=== PATIENT | female | born 1990 | race Caucasian/White ===

== ENCOUNTER 2018-04-11 01:21 | Emergency (ER) | payer OTHER ==
[~2018-04-11] VITALS: Ht 172.7 cm; Wt 65.8 kg
[2018-04-11 01:23] VITALS: BP 114/82
[2018-04-11] MEDS: ONDANSETRON 4 MG/2 ML VIAL IVP ONE ×2 (01:50→02:53)
[2018-04-11] MEDS: NACL 0.9% 1,000 ML IV SCH (01:51)
[2018-04-11 02:22] LABS: CARBON DIOXIDE 27.8 mmol/L (21-32); CREATININE 0.9 mg/dL (0.6-1.3); POTASSIUM 3.8 mmol/L (3.5-5.1)
[2018-04-11 02:29] LABS: TOTAL BILIRUBIN 0.3 mg/dL (0.0-1.0)
[2018-04-11] MEDS: NACL 0.9% 1,000 ML IV ONE (02:56)
[2018-04-11 03:28] LABS: HEMATOCRIT 38.5 % (36-48); HEMOGLOBIN 11.9 g/dL (12.0-16.0); MEAN CORPUSCULAR HEMOGLOBIN 24 pg (27-31); MEAN CORPUSCULAR HGB CONC 31 g/dL (33-37); MEAN CORPUSCULAR VOLUME 78.7 fL (80-94); PLATELET COUNT (AUTO) 333 K/uL (140-450); RED BLOOD CELL COUNT(AUTO) 4.89 MIL/uL (4.20-5.40); RED CELL DISTRIBUTION WIDTH 16.6 % (11.6-13.7)
[2018-04-11 03:41] LABS: EOSINOPHILS % (MANUAL) 2 % (0-4); LYMPHOCYTES % (MANUAL) 3 % (20-46); MONOCYTES % (MANUAL) 1 % (5-12)
[2018-04-11 03:52] LABS: APPEARANCE,URINE SLIGHTLY CLOUDY (CLEAR); COLOR,URINE YELLOW (YELLOW); PH,URINE 6.5 (5.0-9.0)
[2018-04-11 03:53] LABS: BILIRUBIN,URINE NEGATIVE (NEGATIVE); BLOOD, URINE 2+ (NEGATIVE); LEUKOCYTE ESTERASE ,URINE 1+ (NEGATIVE); NITRITE, URINE NEGATIVE (NEGATIVE); UGLUCOSE NEGATIVE (NEGATIVE)
[2018-04-11 03:57] LABS: RBC,URINE 11-20 (MOD) /HPF (0-5); WBC,URINE 16-25 (MOD) /HPF (0-5)
[2018-04-11] MEDS: diphenhydrAMINE 50 MG/ML VIAL IVP ONE (04:44)
[2018-04-11] MEDS: METOCLOPRAMIDE 10 MG/2 ML INJ VIAL IVP ONE (04:48)
[2018-04-11 05:11] VITALS: BP 130/77
== END 2018-04-11 05:11 | disposition home or self-care (01) ==
LOC: MED 01:21
DX: R10.9 Unspecified abdominal pain (principal); R11.2 Nausea with vomiting, unspecified; J45.909 Unspecified asthma, uncomplicated; G43.909 Migraine, unspecified, not intractable, without status migrainosus
CPT/HCPCS: 36415; 80053; 81001; 81025; 83690; 84702; 85025; 87086; 96361; 96374; 96375; 96376; 99284; J1200; J2405; J2765; J7030

== ENCOUNTER 2019-07-05 10:14 | Emergency (ER) | payer MEDICAID, OTHER ==
[~2019-07-05] VITALS: Ht 157.5 cm; Wt 56.7 kg
--- NOTE | 2019-07-05 10:19 | NUR ---
PT AMBULATED TO ER BED 04
[2019-07-05 10:25] VITALS: BP 108/69
--- NOTE | 2019-07-05 10:30 | NUR ---
PT C/O RLQ PAIN 8/10 X 1 DAY DENIES N/V , PT AWAKE , ALERT, AFEBRILE NOT IN DISTRESS. 17 WEEKS , DENIES BLOODY VAGINAL DISCHARGE. NO MEDS TAKEN. DENIES PREVIOUS MEDICAL HX.
--- NOTE | 2019-07-05 11:15 | NUR ---
JAREN AT BEDSIDE.
--- NOTE | 2019-07-05 12:14 | NUR ---
DR MORAN AT BED SIDE.
[2019-07-05 12:39] VITALS: BP 108/69
--- NOTE | 2019-07-05 12:40 | NUR ---
Patient discharged with v/s stable. Written and verbal after care instructions given and explained abdominal pain. Patient alert, oriented and verbalized understanding of instructions. Ambulatory with steady gait. All questions addressed prior to discharge. ID band removed. Patient advised to follow up with PMD. Rx of motrin given. Patient educated on indication of medication including possible reaction and side effects. Opportunity to ask questions provided and answered.
== END 2019-07-05 12:40 | disposition home or self-care (01) ==
LOC: MED 10:14
DX: O26.892 Other specified pregnancy related conditions, second trimester (principal); R10.31 Right lower quadrant pain; J45.909 Unspecified asthma, uncomplicated; Z3A.17 17 weeks gestation of pregnancy
CPT/HCPCS: 76805; 81002; 81025; 99284; Q0092

== ENCOUNTER 2019-07-15 10:38 | Inpatient (IN) | payer MEDICAID ==
[~2019-07-15] VITALS: Ht 157.5 cm; Wt 56.7 kg
[2019-07-15 10:49] VITALS: BP 103/53
--- NOTE | 2019-07-15 10:51 | NUR ---
TRIAGE COMPLETE. VSS. RETURNED TO LOBBY TO WAIT FOR BED IN ED.
--- NOTE | 2019-07-15 12:49 | NUR ---
PT AMBULATED TO BED 07
[2019-07-15] MEDS ORDERED: ACETAMINOPHEN 325 MG TAB PO ONE (13:25)
[2019-07-15] MEDS ORDERED: NACL 0.9% 1,000 ML IV ONE ×2 (13:25→15:00)
[2019-07-15] MEDS ORDERED: ONDANSETRON 4 MG/2 ML VIAL IVP ONE (13:25)
[2019-07-15] MEDS ORDERED: cefTRIAXone 500 MG VIAL ONE ×2 (15:14→15:15)
[2019-07-15 15:18] LABS: APPEARANCE,URINE HAZY (CLEAR); BILIRUBIN,URINE NEGATIVE (NEGATIVE); BLOOD, URINE NEGATIVE (NEGATIVE); COLOR,URINE YELLOW (YELLOW); LEUKOCYTE ESTERASE ,URINE 2+ (NEGATIVE); NITRITE, URINE NEGATIVE (NEGATIVE); PH,URINE 5.5 (5.0-9.0); UGLUCOSE NEGATIVE (NEGATIVE)
[2019-07-15 15:21] LABS: HEMATOCRIT 36.8 % (36-48); HEMOGLOBIN 11.8 g/dL (12.0-16.0); MEAN CORPUSCULAR HEMOGLOBIN 26 pg (27-31); MEAN CORPUSCULAR HGB CONC 32 g/dL (33-37); MEAN CORPUSCULAR VOLUME 81.9 fL (80-94); PLATELET COUNT (AUTO) 171 K/uL (140-450); RED BLOOD CELL COUNT(AUTO) 4.49 MIL/uL (4.20-5.40); RED CELL DISTRIBUTION WIDTH 15.6 % (11.6-13.7); WHITE BLOOD COUNT (AUTO) 6.4 K/uL (4.8-10.8)
[2019-07-15 15:22] LABS: BASOPHILS % (AUTO) 0.2 % (0.0-2.0); EOSINOPHILS % (AUTO) 0.1 % (0.0-4.0); LYMPHOCYTES # (AUTO) 0.1 K/uL (2.5-16.5); LYMPHOCYTES % (AUTO) 1.3 % (20.5-51.1); MONOCYTES # (AUTO) 0.3 K/uL (0.8-1.0); MONOCYTES % (AUTO) 4.3 % (1.7-9.3); NEUTROPHILS # (AUTO) 6.1 K/uL (1.8-7.7); NEUTROPHILS % (AUTO) 94.1 % (42.2-75.2)
[2019-07-15 15:32] LABS: ALBUMIN 3.3 g/dL (3.4-5.0); ANION GAP 14.7 (8-16); CREATININE 0.6 mg/dL (0.6-1.3); POTASSIUM 3.7 mmol/L (3.5-5.1); TOTAL BILIRUBIN 0.5 mg/dL (0.0-1.0)
[2019-07-15 15:34] LABS: RBC,URINE NONE SEEN /HPF (0-5)
[2019-07-15 15:35] LABS: BARBITURATE, URINE NEG. ng/ml (NEG <=200); BENZODIAZEPINE, URINE NEG. ng/mL (NEG <=200); CANNABINOID, URINE NEG. ng/mL (NEG <=50); COCAINE, URINE NEG. ng/mL (NEG <=300); OPIATE, URINE NEG. ng/mL (NEG <=2000); PHENCYCLIDINE SCREEN,URINE NEG. ng/mL (NEG <=25); WBC,URINE 16-25 (MOD) /HPF (0-5)
[2019-07-15] MEDS ORDERED: CHOL1CTB1 PO (15:35)
[2019-07-15] MEDS: NACL 0.9% 1,000 ML IV SCH (15:37)
[2019-07-15] MEDS ORDERED: ONDANSETRON 4 MG/2 ML VIAL IVP PRN (15:40)
[2019-07-15] MEDS ORDERED: DEXTROSE 5% 50 ML IV ONE (16:00)
[2019-07-15] MEDS ORDERED: cefTRIAXone 1,000 MG VIAL ONE (16:00)
[2019-07-15 16:32] LABS: MAGNESIUM 1.6 mg/dL (1.8-2.4); PHOSPHORUS 2.3 mg/dL (2.5-4.9); THYROID STIMULATING HORMONE 0.4 uIU/mL (0.34-3.74)
[2019-07-15 16:41] LABS: PROTHROMBIN TIME 10.2 secs (10.8-13.4)
--- NOTE | 2019-07-15 16:53 | NUR ---
Stable. VSS. Low grade temp. States that she feels better. To be admitted. Awaiting bed on floor.
--- NOTE | 2019-07-15 18:00 | NUR ---
RECEIVED PATIENT FROM ED NURSE VIA KRYS. PATIENT IS AAOX4. RESPIRATIONS EVEN AND UNLABORED, ROOM AIR. VISIBLE CHEST RISE NOTED. SKIN WARM AND INTACT. IV IN THE LEFT AC G22 RUNNING NS BOLUS. PATIENT IS AMBULATORY. BED IN LOW POSITION. CALL LIGHT IS WITHIN REACH. WILL CONTINUE TO MONITOR
--- NOTE | 2019-07-15 18:05 | NUR ---
VITAL SIGNS TAKEN. MRSA OF NARES COLLECTED
--- NOTE | 2019-07-15 18:14 | NUR ---
Stable. VSS. Low grade temp. C/O pain. . Has had Tylenol. Admitted . Report to Med/Surg Nurse. Placed in Bed 112B.
[2019-07-15] MEDS ORDERED: SODIUM PHOS / POTASSIUM PHOS 1 PKT PDR PO SCH (18:30)
--- NOTE | 2019-07-15 18:35 | NUR ---
HANG NS AT 50 ML/HR.
--- NOTE | 2019-07-15 19:19 | NUR ---
ENDORSED PATIENT TO ABRADING MACHINE TENDER NURSE FOR CONTINUITY OF CARE. PATIENT IS IN STABLE CONDITION
--- NOTE | 2019-07-15 19:20 | NUR ---
REPORT RECEIVED FROM AM NURSE AT BEDSIDE. PT IN STABLE CONDITION. AAOX4. INTRODUCED SELF TO PT. BOARD UPDATED. NO COMPLAINTS OF PAIN. NO SOB. AFEBRILE. PT IS AMBULATORY. IV SITE L AC 22G RUNNING NS@50ML/HR PATENT AND INTACT. SKIN WARM, DRY, AND INTACT WITH NO OPEN WOUNDS. BED LOCKED IN LOW POSITION. CALL GROVES WITHIN REACH. SAFETY PRECAUTION IN PLACE. ALL NEEDS MET AT THIS TIME.
[2019-07-15 20:00] VITALS: BP 104/53
[2019-07-15] MEDS: ALBUTEROL 0.083% 2.5 MG/3 ML NEBU INH PRN (20:15)
[2019-07-15] MEDS: HYDROmorphone 1 MG/ML AMP IVP PRN (20:45)
[2019-07-15] MEDS: DOCUSATE SODIUM 100 MG GELCAP PO SCH (20:45)
--- NOTE | 2019-07-15 20:45 | NUR ---
COLACE GIVEN PO. DILAUDID GIVEN FOR 01/31 BACK PAIN. PT TOLERATED WELL. Addendum: 07/16/19 at 0112 by Tiburcio Chance RN TYL GIVEN FOR FEVER OF 101.3. PT TOLERATED WELL.
[2019-07-15] MEDS: ACETAMINOPHEN 325 MG TAB PO PRN (20:50)
--- NOTE | 2019-07-15 21:55 | NUR ---
PT LAYING IN BED WATCHING TV. NO S/S OF DISTRESS NOTED. WILL CONTINUE TO MONITOR.
[2019-07-16] VITALS: BP 101/42
--- NOTE | 2019-07-16 00:20 | NUR ---
PT WATCHING TV COMFORTABLY. NO S/S OF DISTRESS NOTED. WILL CONTINUE TO MONITOR.
[2019-07-16] MEDS: ALBUTEROL 0.083% 2.5 MG/3 ML NEBU INH PRN (00:50)
--- NOTE | 2019-07-16 02:30 | NUR ---
PT SLEEPING COMFORTABLY BUT AROUSABLE. NO S/S OF DISTRESS NOTED. WILL CONTINUE TO MONITOR.
[2019-07-16] MEDS: HYDROmorphone 1 MG/ML AMP IVP PRN ×4 (04:11→22:28)
--- NOTE | 2019-07-16 04:11 | NUR ---
DILAUDID GIVEN FOR 8/10 BACK PAIN. PT TOLERATED WELL.
--- NOTE | 2019-07-16 05:55 | NUR ---
PT SLEEPING COMFORTABLY BUT AROUSABLE. NO S/S OF DISTRESS NOTED. RESPIRATIONS EVEN, UNLABORED, AND WNL. WILL CONTINUE TO MONITOR.
--- NOTE | 2019-07-16 06:45 | NUR ---
PT SLEEPING COMFORTABLY BUT AROUSABLE. PT IN STABLE CONDITION.
[2019-07-16 06:50] LABS: BASOPHILS % (AUTO) 0.1 % (0.0-2.0); HEMATOCRIT 31.4 % (36-48); LYMPHOCYTES # (AUTO) 0.2 K/uL (2.5-16.5); MEAN CORPUSCULAR HEMOGLOBIN 27 pg (27-31); MEAN CORPUSCULAR HGB CONC 32 g/dL (33-37); MEAN CORPUSCULAR VOLUME 83.2 fL (80-94); MONOCYTES # (AUTO) 0.2 K/uL (0.8-1.0); MONOCYTES % (AUTO) 4.3 % (1.7-9.3); NEUTROPHILS # (AUTO) 4.4 K/uL (1.8-7.7); NEUTROPHILS % (AUTO) 91.6 % (42.2-75.2); PLATELET COUNT (AUTO) 150 K/uL (140-450); RED BLOOD CELL COUNT(AUTO) 3.78 MIL/uL (4.20-5.40); RED CELL DISTRIBUTION WIDTH 15.5 % (11.6-13.7); WHITE BLOOD COUNT (AUTO) 4.8 K/uL (4.8-10.8)
--- NOTE | 2019-07-16 07:24 | NUR ---
SHIFT REPORT RECEIVED FROM HEAD UP OPERATOR HELPER NURSE. PT IS IN BED IN STABLE CONDITION. NO DISTRESS NOTED. NO COMPLAINS OF PAIN. CALL LIGHT IN REACH.A
[2019-07-16 07:26] LABS: ANION GAP 13.6 (8-16); CARBON DIOXIDE 21.8 mmol/L (21-32); CREATININE 0.9 mg/dL (0.6-1.3); POTASSIUM 3.4 mmol/L (3.5-5.1)
--- NOTE | 2019-07-16 07:30 | NUR ---
HEART NOTED AT 170.
[2019-07-16 07:36] LABS: MAGNESIUM 1.6 mg/dL (1.8-2.4); PHOSPHORUS 2.7 mg/dL (2.5-4.9)
[2019-07-16 08:00] VITALS: BP 100/54
[2019-07-16] MEDS: methylPREDNISolone SS 40 MG/ML VIAL IVP SCH (08:18)
[2019-07-16] MEDS: DOCUSATE SODIUM 100 MG GELCAP PO SCH ×2 (08:18→22:36)
[2019-07-16] MEDS: SODIUM PHOS / POTASSIUM PHOS 1 PKT PDR PO SCH ×2 (08:19→16:26)
[2019-07-16] MEDS: MAGNESIUM OXIDE 400 MG TAB PO SCH (08:19)
--- NOTE | 2019-07-16 08:31 | NUR ---
PATIENT HAS BEEN SCREENED AND CATEGORIZED LOW NUTRITION RISK. PATIENT WILL BE SEEN WITHIN 7 DAYS OF ADMISSION. 07/22/[address]
--- NOTE | 2019-07-16 09:30 | NUR ---
PT IS IN BED IN STABLE CONDITION. NO COMPLAINS OF PAIN OR DISTRESS NOTED. CALL LIGHT IN REACH.
--- NOTE | 2019-07-16 11:17 | NUR ---
Spotlight Operator Note: Basic Screen: Yes High Risk DC Screen [place]: SHANE Cope Relationship: Pre-Admission Living Arrangements: Lives with Other Prior ADL Independent Current Home Health Name/Tel: N/A Current DME/02 Name/Tel: N/A Current Hospice Name/Tel: N/A Current Dialysis Name/Tel: N/A Healthcare Decision Maker: Patient Advance Directive No - REFUSED Physician Orders for Life Sustaining Treatment Form No Patient/Family Have Educational Needs No Information Taught: Advance Directive Person Taught: Patient Teaching Tools: Verbal Factors Affecting Learning: None Participation Level: Refused Evaluation: Verbalizes Understanding Needs Additional Education: No Discipline: Case Mgt/Social Svcs Tentative Discharge Plan/Destination: SNF/ECF Will require assistance post discharge: No Referred to Coordinate Measuring Machine Technician: No Tentative Discharge Plan Summary: Patient is a 28-year-old female admitted for UTI. Patient was PMHX of asthma. Patient was admitted from home where she lives with her and son. SW met with patient at bedside to verify demographics. Patient reported no history of mental health and no history of substance abuse. Patient's plan after discharge is to return home. No further needs identified. Signature: VIDA Oliver Date: Jul 16, 2019 Time: 11:16
[2019-07-16] MEDS: NACL 0.9% 1,000 ML IV SCH (11:37)
--- NOTE | 2019-07-16 12:00 | NUR ---
PT IS IN BED IN STABLE CONDITION. NO COMPLAINS OF PAIN OR DISTRESS NOTED. CALL LIGHT IN REACH.
[2019-07-16] MEDS ORDERED: POTASSIUM CHLORIDE 10 MEQ TABER PO SCH (13:51)
[2019-07-16] MEDS ORDERED: MAG SULF 2000 MG/WATER PREMIX 50 ML IV SCH (14:00)
--- NOTE | 2019-07-16 15:02 | NUR ---
PT IS IN BED IN STABLE CONDITION. NO COMPLAINS OF PAIN OR DISTRESS NOTED. CALL LIGHT IN REACH.
[2019-07-16 16:00] VITALS: BP 106/63
--- NOTE | 2019-07-16 16:00 | NUR ---
DC [age] YRS OLD WAS ADMITTED FROM HOME WITH A DX OF UTI. PT IS 19 WKS . PT HAS A HX OF ASTHMA UA +2 BACTERIA ADMINISTERED IVF AND 1GM ROCEPHIN IV. CONSULTED WITH OBGYN DR HANCOCK . BLOOD AND URINE CULTURE PENDING. DC PLAN TO GO HOME WHEN STABLE. CM TO FOLLOW.
--- NOTE | 2019-07-16 17:36 | NUR ---
PT IS RESTING IN HER BED. PT IS WATCHING TELEVISION AT THIS TIME. PT AMBULATED TO THE RESTROOM WITHOUT DIFFICULTY. NO DISTRESS NOTED. CALL LIGHT IN REACH.
--- NOTE | 2019-07-16 19:36 | NUR ---
SHIFT REPORT GIVEN TO SECURITY THREAT ANALYST NURSE. PT IS RESTING IN BED AT THIS TIME. NO COMPLAINS OF PAIN. NO DISTRESS NOTED. CALL LIGHT IN REACH.
--- NOTE | 2019-07-16 19:40 | NUR ---
RECEIVED PT FROM DAY SHIFT NURSE PT IS AAOX4 AMBULATORY 19 WEEKS , IV ;ON LEFT AC INFUSING WLL ENIES ANY PAIN AT THS TIME INITIAL ASSESSMENT DONE
--- NOTE | 2019-07-16 22:45 | NUR ---
AFTER PAIN MEDIC GIVEN PT IS GETTING SLEEP QUIET, NOT DISTRESS NOTED
[2019-07-17] VITALS: BP 100/59
--- NOTE | 2019-07-17 01:53 | NUR ---
FROM Deon Rodrigez CAME A NURSE AND DOPPLER DETECT 130 HEART RTE PT GETTING SLEEP
[2019-07-17] MEDS: NACL 0.9% 1,000 ML IV SCH (03:07)
--- NOTE | 2019-07-17 04:00 | NUR ---
SPONGE BATH GIVEN LINEN CHANGED REPOSITIONED NOT DISTRESS NOTED
[2019-07-17] MEDS: HYDROmorphone 1 MG/ML AMP IVP PRN (06:11)
[2019-07-17 06:56] LABS: BASOPHILS % (AUTO) 0.3 % (0.0-2.0); HEMATOCRIT 30.3 % (36-48); HEMOGLOBIN 9.9 g/dL (12.0-16.0); LYMPHOCYTES # (AUTO) 0.4 K/uL (2.5-16.5); LYMPHOCYTES % (AUTO) 6.8 % (20.5-51.1); MEAN CORPUSCULAR HEMOGLOBIN 27 pg (27-31); MEAN CORPUSCULAR HGB CONC 33 g/dL (33-37); MEAN CORPUSCULAR VOLUME 81.9 fL (80-94); MONOCYTES # (AUTO) 0.2 K/uL (0.8-1.0); MONOCYTES % (AUTO) 3.7 % (1.7-9.3); NEUTROPHILS # (AUTO) 5.1 K/uL (1.8-7.7); NEUTROPHILS % (AUTO) 89.2 % (42.2-75.2); PLATELET COUNT (AUTO) 143 K/uL (140-450); RED CELL DISTRIBUTION WIDTH 15.3 % (11.6-13.7); WHITE BLOOD COUNT (AUTO) 5.7 K/uL (4.8-10.8)
--- NOTE | 2019-07-17 07:00 | NUR ---
PT REMAIN STABLE AFTER PAIN MEDIC GIVEN IV ON LEFT AC INFUSING WELL NOT DISTRESS NOTED
--- NOTE | 2019-07-17 07:08 | NUR ---
RECEIVED REPORT FROM CERTIFIED WELLNESS PROGRAM MANAGER NURSE. PT IS AWAKE AND ORIENTED. PT IS STABLE. CALL LIGHT WITHIN PT'S REACH, BED ON LOW. SIDERAILS UP. WILL CONTINUE TO MONITOR
[2019-07-17 07:17] LABS: MAGNESIUM 1.7 mg/dL (1.8-2.4); PHOSPHORUS 1.5 mg/dL (2.5-4.9)
[2019-07-17 07:29] LABS: ANION GAP 14.1 (8-16); CARBON DIOXIDE 20.5 mmol/L (21-32); CREATININE 0.6 mg/dL (0.6-1.3); POTASSIUM 3.6 mmol/L (3.5-5.1)
[2019-07-17 08:00] VITALS: BP 120/60
[2019-07-17] MEDS ORDERED: NITR100C7 PO (08:50)
--- NOTE | 2019-07-17 09:10 | NUR ---
SCHEDULED MEDS GIVEN. MEDICATION EDUCATION AND SIDE EFFECTS INSTRUCTED. PT VERBALIZED UNDERSTANDING. CALL LIGHT WITHIN PT'S REACH. MD ORDERED FOR D/C AFTER ANTIBIOTIC AND MAGNESIUM GIVEN. WILL CONTINUE TO MONITOR
[2019-07-17] MEDS ORDERED: MAG SULF 2000 MG/WATER PREMIX 50 ML IV SCH (09:30)
[2019-07-17] MEDS ORDERED: SODIUM PHOS / POTASSIUM PHOS 1 PKT PDR PO SCH (09:30)
[2019-07-17] MEDS: DOCUSATE SODIUM 100 MG GELCAP PO SCH (10:04)
[2019-07-17] MEDS: MAGNESIUM OXIDE 400 MG TAB PO SCH (10:05)
[2019-07-17] MEDS: methylPREDNISolone SS 40 MG/ML VIAL IVP SCH (10:05)
[2019-07-17] MEDS ORDERED: LACT10CA PO (10:24)
[2019-07-17] MEDS: guaiFENesin DM 200/20 MG-10 ML 10 ML UDC PO PRN ×2 (10:36→18:20)
--- NOTE | 2019-07-17 11:00 | NUR ---
FREQUENT ROUNDING DONE. PTIS STABLE, CALL LIGHT WITHIN PT'S REACH. WILL CONTINUE TO MONITOR
--- NOTE | 2019-07-17 11:05 | NUR ---
Late entry. Confirmed with RN that 0.9 NS IV started at 1405 and completed at 1505. Rocephin IVPB completed at 1610. IV 0.9 NS at 100ml/hr completed at 1730
[2019-07-17] MEDS ORDERED: SODIUM PHOSPHATE 15 MMOLE in NACL 0.9% 250 ML IV SCH (12:00)
--- NOTE | 2019-07-17 13:00 | NUR ---
FREQUENT ROUNDINGS DONE. PT IS AWAKE AND STABLE. PT IS FOR D/C ORDERED. CALL LIGHT WITHIN PT'S REACH. WILL CONTINUE TO MONITOR
[2019-07-17 16:00] VITALS: BP 123/68
--- NOTE | 2019-07-17 16:00 | NUR ---
FREQUENT ROUNDINGS DONE. PT D/C PAPERS INSTRUCTED AND SIGNED. PT VERBALIZED UNDERSTANDING. PT SAID SHE WILL BE PICKED UP BY HER AT 08:30PM.
[2019-07-17 18:13] VITALS: BP 123/68
[2019-07-17] MEDS ORDERED: ALBU0.0912 IH (18:18)
[2019-07-17] MEDS: ACETAMINOPHEN 325 MG TAB PO PRN (18:20)
--- NOTE | 2019-07-17 18:20 | NUR ---
PT ASKED FOR MEDICATION FOR HER HEADACHE AND COUGH. PRN TYLENOL AND ROBITUSSIN GIVEN. IV REMOVED, CANNULA IS INTACT. ID BANDS REMOVED.
--- NOTE | 2019-07-17 19:00 | NUR ---
PT IS STILL WAITING FOR HER DEMOLITION ENGINEER. ENDORSED TO DRILLING MANAGER. PT IS STABLE.
--- NOTE | 2019-07-17 19:12 | NUR ---
PT ALERT AND ORIENTED. APPEARS RELAXED RESTING IN BED. DISCHARGE INSTRUCTIONS PROVIDED. MADE AWARE OF MEDICATION PRESCRIPTIONS AND BREAD OVEN OPERATOR PHARMACY. PATIENT VERBALIZED UNDERSTANDING. IV CANNULA REMOVED. NO BLEEDING NOTED FROM THE SITE. SITE SECURED WITH DRESSING. ID BAND REMOVED. DISCHARGE PACKET PROVIDED TO THE PATIENT. PT WILL BE PICKED UP BY HER BY 2000 PER PATIENT.
== END 2019-07-17 19:50 | disposition home or self-care (01) | DRG 566 ==
LOC: MED 10:38 → MTU 17:43
PROVIDERS: ADMIT General Practice; ATTEND General Practice
DX: O99.282 Endocrine, nutritional and metabolic diseases complicating pregnancy, second trimester (principal); E44.1 Mild protein-calorie malnutrition; N13.6 Pyonephrosis; E83.42 Hypomagnesemia; E83.39 Other disorders of phosphorus metabolism; O23.02 Infections of kidney in pregnancy, second trimester; O99.512 Diseases of the respiratory system complicating pregnancy, second trimester; J45.909 Unspecified asthma, uncomplicated; Z3A.18 18 weeks gestation of pregnancy; E87.6 Hypokalemia
CPT/HCPCS: 36415; 76770; 76805; 80048; 80053; 80305; 81001; 83036; 83605; 83690; 83735; 83880; 84100; 84443; 84484; 85025; 85610; 85730; 87040; 87081; 87086; 94640; 96374; 99285; J0696; J1170; J2405; J2920; J3475; J7030; J7060; J7613; Q0092

== ENCOUNTER 2021-04-16 02:30 | Emergency (ER) | payer MEDICAID, OTHER ==
[~2021-04-16] VITALS: Ht 157.5 cm; Wt 56.7 kg
[~2021-04-16 02:30] MED LIST: ALBU0.0912 IH; CHOL1CTB1 PO; LACT10CA PO; NITR100C7 PO
--- NOTE | 2021-04-16 02:35 | NUR ---
SEEN AND EXAMINED BY MAVIS
[2021-04-16 02:36] VITALS: BP 133/77
--- NOTE | 2021-04-16 02:39 | NUR ---
TO LOBBY A/W BED AMBULATORY
[2021-04-16] MEDS ORDERED: ACETAMINOPHEN EXTRA STRENGTH 500 MG TAB PO ONE (02:50)
[2021-04-16] MEDS ORDERED: METOCLOPRAMIDE 10 MG TAB PO ONE (02:50)
[2021-04-16] MEDS ORDERED: KETOROLAC 30 MG/ML VIAL IM ONE (02:50)
--- NOTE | 2021-04-16 02:50 | NUR ---
MEDICATED PER ERMDS ORDER, TOLERATED WELL
[2021-04-16] MEDS ORDERED: ACET-10509 PO (04:01)
[2021-04-16] MEDS ORDERED: METO-485 PO (04:01)
[2021-04-16] MEDS ORDERED: IBUP-2213 PO (04:01)
[2021-04-16] MEDS ORDERED: DIPH25TA53 PO (04:01)
[2021-04-16 04:05] VITALS: BP 119/80
--- NOTE | 2021-04-16 04:05 | NUR ---
Patient discharged with v/s stable. Written and verbal after care instructions given and explained. Patient alert, oriented and verbalized understanding of instructions. Ambulatory with steady gait. All questions addressed prior to discharge. ID band removed. Patient advised to follow up with PMD. Rx of TYLENOL BENADRYL, REGLAN given. Patient educated on indication of medication including possible reaction and side effects. Opportunity to ask questions provided and answered.
== END 2021-04-16 04:05 | disposition home or self-care (01) ==
LOC: MED 02:30
DX: G43.909 Migraine, unspecified, not intractable, without status migrainosus (principal); J45.909 Unspecified asthma, uncomplicated
CPT/HCPCS: 96372; 99284; J1885; J8597; Q0163